=== PATIENT | female | born 1985 ===

== ENCOUNTER 2022-01-05 04:12 | Inpatient (IN) | payer BC ==
[~2022-01-05 04:12] MED LIST: Bupivacaine/fentaNYL/NS 100 ML Bag EPIDUR ONE; Bupivacaine/fentaNYL/NS 100 ML Bag ONE; Lactated Ringers 1,000 ML ONE; Ondansetron 4 MG/2 ML SDV IV ONE; Ondansetron 4 MG/2 ML SDV ONE; Oxytocin/Lactated Ringers 10 UNIT/1,000 ML BAG IV ONE; fentaNYL 100 MCG/2 ML SDV IV ONE; fentaNYL 100 MCG/2 ML SDV ONE
[2022-01-05] MEDS ORDERED: Ondansetron 4 MG/2 ML SDV ONE (04:58)
[2022-01-05] MEDS ORDERED: Promethazine 25 MG/ML SDV ONE (06:29)
[2022-01-05] MEDS ORDERED: Lactated Ringers 1,000 ML ONE (06:29)
[2022-01-05] MEDS ORDERED: Lactated Ringers 1,000 ML IV ONE (07:00)
[2022-01-05] MEDS ORDERED: Ibuprofen 600 MG Tab ONE ×2 (09:10→14:34)
[2022-01-05] MEDS ORDERED: Prenatal Multivitamin with Calcium/Folic Acid/Iron Tab ONE (09:11)
[2022-01-05] MEDS ORDERED: Ibuprofen 600 MG Tab PO ONE (09:15)
[2022-01-05] MEDS ORDERED: Acetaminophen 325 MG Tab ONE (11:08)
[2022-01-05] MEDS ORDERED: Witch Hazel Medicated Pads 40/Jar TOP PRN (16:12)
[2022-01-05] MEDS ORDERED: Magnesium Hydroxide 400 MG/5 ML Susp 30 ML Cup PO PRN (16:12)
[2022-01-05] MEDS ORDERED: Hydrocortisone Acetate 25 MG Supp RECTAL PRN (16:12)
[2022-01-05] MEDS ORDERED: Benzocaine/Menthol 20%-0.5% Spray 78 GM Cannister TOP PRN (16:12)
[2022-01-05] MEDS ORDERED: Promethazine 12.5 MG in Sodium Chloride 0.9% 50 ML IV PRN (16:19)
[2022-01-05] MEDS: Ibuprofen 600 MG Tab PO PRN (21:01)
[2022-01-05] MEDS: Acetaminophen 325 MG Tab PO PRN (23:25)
[2022-01-06] MEDS: Ibuprofen 600 MG Tab PO PRN ×3 (01:11→14:04)
[2022-01-06] MEDS: Acetaminophen 325 MG Tab PO PRN ×3 (04:06→18:35)
[2022-01-06] MEDS ORDERED: Prenatal Multivitamin with Calcium/Folic Acid/Iron Tab PO SCH (09:00)
== END 2022-01-06 18:30 | disposition home or self-care (01) | DRG 560 ==
LOC: JD.OB 04:12
PROVIDERS: ADMIT Obstetrics & Gynecology; ATTEND Obstetrics & Gynecology
PROC: 10H07YZ Insertion of Other Device into Products of Conception, Via Natural or Artificial Opening (ICD-10-PCS; principal; 2022-01-05)
PROC: 10907ZC Drainage of Amniotic Fluid, Therapeutic from Products of Conception, Via Natural or Artificial Opening (ICD-10-PCS; principal; 2022-01-05)
PROC: 10E0XZZ Delivery of Products of Conception, External Approach (ICD-10-PCS; principal; 2022-01-05)
PROC: 00HU33Z Insertion of Infusion Device into Spinal Canal, Percutaneous Approach (ICD-10-PCS; principal; 2022-01-05)
PROC: 0HQ9XZZ Repair Perineum Skin, External Approach (ICD-10-PCS; principal; 2022-01-05)
PROC: 3E0R3BZ Introduction of Anesthetic Agent into Spinal Canal, Percutaneous Approach (ICD-10-PCS; principal; 2022-01-05)
DX: O70.0 First degree perineal laceration during delivery (principal); Z3A.38 38 weeks gestation of pregnancy; Z37.0 Single live birth
CPT/HCPCS: 36415; 51702; 59025; 59409; 86850; 86900; 86901; 94762; A9270-GY; J2405; J2550; J2590; J3010; J7120